=== PATIENT | female | born 1995 | race Caucasian/White ===

== ENCOUNTER → 2017-02-28 | Outpatient (CLI) | payer OTHER ==
[~2017-02-28] MED LIST: NORCO 325 MG-51 TAB PO; ORTHO TRI-CYCLE1 TAB PO; VALTREX 50500 MG/TAB PO; XANAX .25M0.25 MG/TA PO; ZOLOFT 100MG100 MG PO
== END ==
LOC: BHSO 13:51
DX: F31.81 Bipolar II disorder (principal)

== ENCOUNTER → 2017-04-11 | Outpatient (CLI) | payer OTHER | LOC: BHSO 13:10 | DX: F31.73 Bipolar disorder, in partial remission, most recent episode manic (principal) ==

== ENCOUNTER → 2017-06-29 | Outpatient (CLI) | payer OTHER | LOC: BHSO 15:43 | DX: F90.9 Attention-deficit hyperactivity disorder, unspecified type (principal) ==

== ENCOUNTER → 2017-10-05 | Outpatient (CLI) | payer OTHER | LOC: BHSO 15:54 | DX: F31.73 Bipolar disorder, in partial remission, most recent episode manic (principal) | CPT/HCPCS: G0463 ==